=== PATIENT | female | born 1955 | race Two or more races ===

== ENCOUNTER → 2016-09-26 | Outpatient (CLI) | payer MEDICARE ==
[~2016-09-26] MED LIST: ALDACTONE25 MG PO; ASPIRIN LO-DOSE81 MG PO; ATIVAN 1 MG1 MG PO; BRILINTA90 MG PO; BUSPAR10 MG PO; CARDIZEM CD180 MG PO; CPAP; DESYREL100 MG PO; EFFEXOR XR150 MG PO; FLEXERIL10 MG PO; GABAPENTIN300 MG PO; HUMIBID LA (MU600 MG PO; K-TAB ER20 MEQ PO; LAMICTAL100 MG PO; LEXAPRO20 MG PO; LOPRESSOR25 MG PO; MYCOSTATIN(NYST15 GM TOP; NEURONTIN300 MG PO; NITROSTAT0.4 MG SL; OSCAL + D500 MG PO; OXYGEN M-15 INH; PERCOCET 5-3251 EACH PO; PRAVACHOL20 MG PO; PROAIR RESPICL90 MCG INH; PROTONIX40 MG PO; RANEXA ER500 MG PO; REQUIP1 MG PO; SYMBICORT 16010.2 GM INH; TYLENOL325 MG PO; VITAMIN E400 UNI2 PO; XOPENEX HF45 MCG/INH INH; XYZAL5 MG PO; ZANAFLEX4 MG PO
== END | disposition disaster alternative care site (69) ==
LOC: GOPD 09-21
PROC: 0FB23ZX Excision of Left Lobe Liver, Percutaneous Approach, Diagnostic (ICD-10-PCS; principal; 2016-09-26)
DX: R79.89 Other specified abnormal findings of blood chemistry (principal); K75.81 Nonalcoholic steatohepatitis (NASH); K75.9 Inflammatory liver disease, unspecified; R16.1 Splenomegaly, not elsewhere classified; Z90.49 Acquired absence of other specified parts of digestive tract
CPT/HCPCS: J2250; J3010; J7030

== ENCOUNTER 2016-12-03 00:40 | Emergency (ER) | payer MEDICARE ==
--- NOTE | ~2016-12-03 | ER ---
PATIENT'S NAME: MARITZA MUNOZ [facility] AGE: 61 Y [address] ROOM: [place] [address] LOCATION: [facility] ADMIT DATE: 12/03/2016 ER/Outpatient Report DISCHARGE DATE: FAMILY PHYSICIAN: Selam Florian MD ATTENDING PHYSICIAN: Fazal Jacobsen SEEN AT: 0055 hours. HISTORY OF PRESENT ILLNESS: This is a 61-year-old female. She was previously reasonably healthy. She is in with complaint of generalized weakness, headache, lightheaded, shortness of breath, and chest pain intermittently throughout the day today. The history is limited because the patient is unwilling or unable to answer questions. I discussed the patient with her daughter who is a nurse here at [facility] [facility] and she states that her mom has a conversion disorder and pseudoseizures. She has been under a great deal of stress and it is not unusual for her to present in this sort of a fugue state. Also the chest pain and shortness of breath are common symptoms. She does have known coronary artery disease. She had a stent in May 2015. CURRENT MEDICATIONS: See list. REVIEW OF SYSTEMS: The patient has been under a great deal of stress over the past several days. All other systems are negative. SOCIAL HISTORY: She is a nonsmoker. PHYSICAL EXAMINATION: GENERAL: Is that of a female, was lying passively, eyes open, would not make eye contact, would not answer any questions. VITAL SIGNS: Stable. She is afebrile. Sats were 95% on room air. HEAD, EARS, EYES, NOSE, AND THROAT: Revealed pupils equal, round, and reactive to light. She had a conjugate gaze. Ear nose and throat were clear. NECK: Supple. HEART: Normal. LUNGS: Normal. ABDOMEN: Soft. EXTREMITIES: Normal. NEUROLOGIC: Normal. DIAGNOSTIC DATA: PATIENT'S NAME: MARITZA MUNOZ [facility] AGE: 61 Y [address] ROOM: [place] [address] LOCATION: [facility] ADMIT DATE: 12/03/2016 ER/Outpatient Report DISCHARGE DATE: FAMILY PHYSICIAN: Selam Florian MD ATTENDING PHYSICIAN: Fazal Jacobsen EKG revealed normal sinus rhythm with no acute ST or T-wave changes. CBC, comprehensive metabolic profile, and cardiac enzymes were notable for a slightly elevated CK-MB but a normal troponin. Cardiac enzymes were repeated at 2 hours. CK-MB was still slightly elevated. Troponin remained normal. The patient gradually returned to a normal level of alertness and was asymptomatic at the time of discharge. ASSESSMENT: Conversion disorder. PLAN: Continue her current medications. Follow up with a regular doctor in 2 to 3 days. FAZAL JACOBSEN MD JLILIBETH/modl /[id number] d: 12/04/16 0033 t: 12/04/16 0444, OUTPATIENT REPORT
[2016-12-03 01:17] LABS: BASOPHIL % 0.4 %; EOSINOPHIL # 0.1 K/uL (0.0-0.5); EOSINOPHIL % 1.8 %; HEMATOCRIT 37.5 % (33.0-46.0); HEMOGLOBIN 12.4 g/dL (10.0-15.0); IMMATURE GRANULOCYTE % 0.6 %; LYMPHOCYTE # 1.9 K/uL (0.8-4.0); LYMPHOCYTE % 37.1 %; MCH 27.6 pg (27.0-34.0); MCHC 33.1 gm/dL (32.0-36.5); MCV 83.5 fl (83.0-98.0); MONOCYTE # 0.6 K/uL (0.0-1.0); MPV 10.7 fl (9.4-12.4); NEUTROPHIL # (ANC) 2.5 K/uL (1.8-7.8); NEUTROPHIL % 49.1 %; NRBC % 0 /100WBC (0-0.00); PLATELET COUNT 133 K/uL (150-450); RBC 4.49 M/uL (3.50-5.50); RDW-CV 13.9 % (11.9-14.6)
[2016-12-03 01:27] LABS: INR - (THERAPEUTIC) 1.03 (0.92-1.07); PROTIME 10.8 SECONDS (9.8-11.4); PTT 30 SECONDS (25-32)
[2016-12-03 01:36] LABS: ALBUMIN 3.7 gm/dL (3.5-5.0); ALK PHOS 138 IU/L (33-138); ALT 58 IU/L (12-78); AST 60 IU/L (10-40); BLOOD UREA NITROGEN 16 mg/dL (6-24); CALCIUM 8.5 mg/dL (8.5-10.5); CHLORIDE 103 mMol/L (96-110); CO2 27 mMol/L (22-32); CPK 330 IU/L (21-215); CREATININE 0.8 mg/dL (0.5-1.1); ESTIMATED GFR (MDRD EQUATION) > 60; MAGNESIUM 2.2 mg/dL (1.8-2.6); SODIUM 137 mMol/L (135-145); TOTAL BILIRUBIN 0.4 mg/dL (0.0-1.5)
[2016-12-03 02:05] LABS: BILIRUBIN URINE NEGATIVE (NEGATIVE); BLOOD URINE 50 /UL (NEGATIVE); COLOR URINE YELLOW (YELLOW); GLUCOSE URINE NEGATIVE (NEGATIVE); KETONE URINE NEGATIVE (NEGATIVE); LEUKOCYTES URINE NEGATIVE /UL (NEGATIVE); NITRITE URINE NEGATIVE (NEGATIVE); PROTEIN URINE NEGATIVE (NEGATIVE); TURBIDITY URINE CLEAR (CLEAR); UROBILINOGEN URINE NORMAL (NORMAL)
[2016-12-03 02:11] LABS: BACTERIA URINE NEGATIVE (NEGATIVE); WBC URINE RARE #/HPF (NEGATIVE)
[2016-12-03 03:24] LABS: CPK 309 IU/L (21-215)
== END 2016-12-03 04:36 | disposition disaster alternative care site (69) ==
LOC: GMED 00:40
PROVIDERS: Emergency Medicine
DX: F44.4 Conversion disorder with motor symptom or deficit (principal); Z91.040 Latex allergy status; Z79.82 Long term (current) use of aspirin; Z79.899 Other long term (current) drug therapy; Z88.2 Allergy status to sulfonamides; Z88.8 Allergy status to other drugs, medicaments and biological substances

== ENCOUNTER → 2016-12-03 | Outpatient (CLI) | payer MEDICARE | END | disposition disaster alternative care site (69) | LOC: GAMB 00:13 | DX: R53.1 Weakness (principal); I10 Essential (primary) hypertension; R51 Headache; Z79.84 Long term (current) use of oral hypoglycemic drugs; Z79.82 Long term (current) use of aspirin; Z79.899 Other long term (current) drug therapy ==

== ENCOUNTER → 2016-12-06 | Outpatient (CLI) | payer MEDICARE | END | disposition disaster alternative care site (69) | LOC: GBCOE 13:58 | DX: Z12.31 Encounter for screening mammogram for malignant neoplasm of breast (principal) | CPT/HCPCS: G0202 ==

== ENCOUNTER → 2016-12-24 | Outpatient (CLI) | payer MEDICARE | END | disposition disaster alternative care site (69) | LOC: GAMB 09:37 | DX: M54.9 Dorsalgia, unspecified (principal); W19.XXXA Unspecified fall, initial encounter | CPT/HCPCS: A0425; A0429 ==

== ENCOUNTER 2017-01-22 16:48 | Emergency (ER) | payer MEDICARE ==
--- NOTE | ~2017-01-22 | ER ---
PATIENT'S NAME: MARITZA MUNOZ [facility] AGE: 61 Y [address] ROOM: [place] [address] LOCATION: [facility] ADMIT DATE: 01/22/2017 ER/Outpatient Report DISCHARGE DATE: 01/22/2017 FAMILY PHYSICIAN: Physician, Unknown ATTENDING PHYSICIAN: Ziggy Whitney HISTORY OF PRESENT ILLNESS: This patient is a 61-year-old female, who alleges that was laying on the couch, may have fallen off the couch, hitting her head on the coffee table. There was some water and a glass on a coffee table that was spilled. She did develop through the day a head pain and neck pain and some numbness on the right side of her head, arms, and legs. Initially, the patient saw Dr. Whitney. See his dictation in regard to the chief complaint, history of the present illness, past medical history, physical exam, laboratory, x-ray study results. Dr. Whitney asked me to follow up with the patient's right shoulder x-ray, final diagnosis, and treatment plan. The patient is having no neurological changes on my exam here in the emergency department prior to dismissal. X-ray of her right shoulder showed no fracture, dislocation, or separation. We will review this with radiologist. LABORATORY DATA AND X-RAYS: CT scan of her head showed no intracranial bleed, midline shift, mass effect, or skull fracture. CT scan of the cervical spine showed no acute fracture or subluxation. CT scans read by Radiology, see dictated transcribed report. Her laboratory studies showed a white count of 4100, 46 segs, 41 lymphocytes, 11 monos, 2 eos, 1 baso, hemoglobin is 13, with hematocrit of 39.2, platelet count was 125,000. Lactate was normal at 0.9. CMS was normal except for a slightly elevated AST of 61, free T4 was 0.9, TSH was 3.25. IMPRESSION: Possible fall off a couch with possibility to that she hit the right side of her head on the coffee table. The patient has no neurological deficits. No abnormalities on CT scan of the head, cervical spine. Normal laboratory workup. Normal right plain shoulder x-ray. PLAN: The patient was dismissed from the emergency department, home, observation, activity as tolerated, continue present home medications and care. Tylenol 2 every 4-6 hours as needed for pain, ice or cold packs to sore areas intermittently as needed for the first 72 hours. Follow up with personal physician in 2 to 3 days sooner if needed. Discussion ensued with the patient concerning my findings and recommendations, she understands. PATIENT'S NAME: MARITZA MUNOZ [facility] AGE: 61 Y [address] ROOM: [place] [address] LOCATION: [facility] ADMIT DATE: 01/22/2017 ER/Outpatient Report DISCHARGE DATE: 01/22/2017 FAMILY PHYSICIAN: Physician, Unknown ATTENDING PHYSICIAN: Ziggy Whitney MD REJI LÓPEZ/paulinel /[id number] d: 01/22/17 2249 t: 01/23/17 1803, OUTPATIENT REPORT
--- NOTE | ~2017-01-22 | ER ---
PATIENT'S NAME: MARITZA MUNOZ [facility] AGE: 61 Y [address] ROOM: [place] [address] LOCATION: [facility] ADMIT DATE: 01/22/2017 ER/Outpatient Report DISCHARGE DATE: 01/22/2017 FAMILY PHYSICIAN: Physician, Unknown ATTENDING PHYSICIAN: Ziggy Whitney CHIEF COMPLAINT: Fall with head injury. HISTORY OF PRESENT ILLNESS: Maritza arrives by ambulance. She states that she fell out of a couch at home this morning around 8:00 a.m.; she does not know how. She knows she fell out of the couch, but she thinks she hit her head on the coffee table in front of the couch because when she woke up, there was some spilled water from a cup that was on the coffee table. She cannot recall these events, but is certain that is what happened. She did fine throughout the day, but felt like she had some numbness and tingling on her right side that was worse than it should be. She was going to wait for her to get home at 5, however at 4:30 p.m., she felt that it was necessary to call the ambulance as she could not wait another half hour. She was concerned about bleeding in her head. She has no other complaints other than some pain in her right shoulder. PAST MEDICAL HISTORY: Documented on the record and reviewed by me. SOCIAL HISTORY: Documented on the record and reviewed by me. MEDICATIONS: Documented on the record and reviewed by me. ALLERGIES: DOCUMENTED ON THE RECORD AND REVIEWED BY ME. REVIEW OF SYSTEMS: All systems were reviewed and negative except as noted in the HPI. PHYSICAL EXAMINATION: VITAL SIGNS: Blood pressure 140/63, pulse 82, respiratory rate 16, temperature 98.3, and SpO2 is 96% on room air. Pain is rated 4/10. GENERAL: An age-appropriate female, upright on the exam chair, in no apparent pain or distress. NEUROLOGIC: The patient is awake. She is alert. She is oriented to person, place, and time. She has no cranial nerve deficits. No pronator drift. No PATIENT'S NAME: MARITZA MUNOZ [facility] AGE: 61 Y [address] ROOM: [place] [address] LOCATION: [facility] ADMIT DATE: 01/22/2017 ER/Outpatient Report DISCHARGE DATE: 01/22/2017 FAMILY PHYSICIAN: Physician, Unknown ATTENDING PHYSICIAN: Ziggy Whitney obvious speech impediments. The patient states that she has weakness in her right side. Her push and pull were asymmetric, however, when the examiner exaggerated the motion and provided an opposing force, the patient had symmetric strength and ability to withstand motion. Her promotional marketing agent also improved markedly when she was forced to hang on to some asymmetric promotional marketing agent. Sensory testing to dull and sharp is nonrepeatable in any extremity, over all of the dermatomes of the patient. There is no clear pattern and she is correct approximately 70% of the time on both sides. The lower extremities are grossly unremarkable to strength. HEENT: Normocephalic and atraumatic. Eyes are PERRL. Oropharynx is clear. NECK: Supple. Trachea is midline. CHEST: Heart is regular rate and rhythm with no murmurs. LUNGS: Clear to auscultation bilateral with no rhonchi, wheezes, or rales. ABDOMEN: Soft, nontender, and nondistended. No rebound or guarding. BACK: Normal to inspection and palpation. EXTREMITIES: Warm and well perfused without tenderness, edema, or deformities, other than some pain in the right shoulder with resistance to motion. SKIN: Clean, dry, and intact. The head is with perhaps some swelling on the right posterior lateral aspects, poorly defined, but slightly tender. LABORATORY DATA AND X-RAYS: Head CT with no appreciable abnormalities acutely per Radiology review. Accu-Chek 103. CBC with no appreciable abnormalities. Lactate is undetectable. CMS with no electrolyte or renal abnormalities. AST slightly elevated at 61. Free T4 is 0.9. TSH is 3.25. Right shoulder x-ray is pending. IMPRESSION: 1. Possible fall with possible paresthesias. 2. Some shoulder discomfort after possible fall with possible paresthesias. EMERGENCY DEPARTMENT COURSE: The patient was seen and evaluated. No signs of stroke or intracranial bleeding. No significant extremity injuries appreciated. The patient does overall have a very strange affect. Review of her chart is notable for a history of some pseudoseizures. The patient has no evidence of active seizure at this time. Her neuro exam although unusual is nonfocal. Care was transitioned to Dr. Soliz at 1800 hours to complete follow up of imaging and labs, re-evaluate the patient and disposition accordingly. PATIENT'S NAME: MARITZA MUNOZ [facility] AGE: 61 Y [address] ROOM: [place] [address] LOCATION: [facility] ADMIT DATE: 01/22/2017 ER/Outpatient Report DISCHARGE DATE: 01/22/2017 FAMILY PHYSICIAN: Physician, Unknown ATTENDING PHYSICIAN: Ziggy Whitney MD JH/korey /[id number] d: 01/23/17 1052 t: 01/29/17 1019, OUTPATIENT REPORT
[2017-01-22 17:27] LABS: BASOPHIL % 0.5 %; EOSINOPHIL # 0.1 K/uL (0.0-0.5); EOSINOPHIL % 1.5 %; HEMATOCRIT 39.2 % (33.0-46.0); IMMATURE GRANULOCYTE % 0.5 %; LYMPHOCYTE # 1.7 K/uL (0.8-4.0); LYMPHOCYTE % 41.1 %; MCHC 33.2 gm/dL (32.0-36.5); MCV 84.3 fl (83.0-98.0); MONOCYTE # 0.4 K/uL (0.0-1.0); MONOCYTE % 10.8 %; MPV 10.5 fl (9.4-12.4); NEUTROPHIL # (ANC) 1.9 K/uL (1.8-7.8); NEUTROPHIL % 45.6 %; NRBC % 0 /100WBC (0-0.00); PLATELET COUNT 125 K/uL (150-450); RBC 4.65 M/uL (3.50-5.50); RDW-CV 14.1 % (11.9-14.6); WBC 4.1 K/uL (4.0-11.0)
[2017-01-22 17:53] LABS: ALBUMIN 3.8 gm/dL (3.5-5.0); ALK PHOS 119 IU/L (33-138); ALT 60 IU/L (12-78); ANION GAP 11.8 (10.0-19.0); AST 61 IU/L (10-40); BLOOD UREA NITROGEN 10 mg/dL (6-24); CALCIUM 8.8 mg/dL (8.5-10.5); CHLORIDE 103 mMol/L (96-110); CO2 29 mMol/L (22-32); CREATININE 0.7 mg/dL (0.5-1.1); POTASSIUM 3.8 mMol/L (3.7-5.1); SODIUM 140 mMol/L (135-145); TOTAL PROTEIN 8.1 g/dL (6.0-8.4)
[2017-01-22 17:54] LABS: TOTAL BILIRUBIN 0.5 mg/dL (0.0-1.5)
== END 2017-01-22 18:18 | disposition disaster alternative care site (69) ==
LOC: GACC 16:48
PROVIDERS: Emergency Medicine
DX: M25.511 Pain in right shoulder (principal); I10 Essential (primary) hypertension; F32.9 Major depressive disorder, single episode, unspecified; F41.9 Anxiety disorder, unspecified; Z88.2 Allergy status to sulfonamides; Z88.8 Allergy status to other drugs, medicaments and biological substances; Z79.899 Other long term (current) drug therapy; Z79.82 Long term (current) use of aspirin

== ENCOUNTER → 2017-01-22 | Outpatient (CLI) | payer MEDICARE | END | disposition disaster alternative care site (69) | LOC: GAMB 16:20 | DX: S09.90XA Unspecified injury of head, initial encounter (principal); R51 Headache; W01.0XXA Fall on same level from slipping, tripping and stumbling without subsequent striking against object, initial encounter | CPT/HCPCS: A0425; A0429 ==

== ENCOUNTER 2017-02-02 17:23 | Emergency (ER) | payer MEDICARE ==
--- NOTE | ~2017-02-02 | ER ---
PATIENT'S NAME: MARITZA MUNOZ [facility] AGE: 61 Y [address] ROOM: [place] [address] LOCATION: [facility] ADMIT DATE: 02/02/2017 ER/Outpatient Report DISCHARGE DATE: 02/02/2017 FAMILY PHYSICIAN: Selam Florian MD ATTENDING PHYSICIAN: Ziggy Whitney TIME OF ARRIVAL: 1735 hours. TIME OF EXAM: 1735 hours. CHIEF COMPLAINT: Ground level fall. HISTORY OF PRESENT ILLNESS: The patient states yesterday 02/01/2017 about 8 o'clock at night, she tripped over her dog, ended up falling on her butt, and then falling back. She states that she thinks she may have hit her head and had loss of consciousness, but she is not for sure. She states today that she continues to have pain and discomfort. She states she twisted her right ankle when she tripped over the dog and she has pain of the head, neck, and lower back. Reports she has a history of having surgery to her lower back in 2001. Denies any numbness or tingling of her extremities. She has not had any change in her bowel or bladder pattern. She has not been nauseated. No vomiting. She has not had vision changes. Does have a headache. ALLERGIES: SULFA. CURRENT MEDICATIONS: Current medications are on the chart and reviewed by me. PAST MEDICAL HISTORY: COPD, depression, and hypertension. PAST SURGERIES: Back surgery. SOCIAL HISTORY: She denies use of tobacco, drugs, and alcohol. REVIEW OF SYSTEMS: Negative other than those mentioned in the HPI. PATIENT'S NAME: MARITZA MUNOZ [facility] AGE: 61 Y [address] ROOM: [place] [address] LOCATION: [facility] ADMIT DATE: 02/02/2017 ER/Outpatient Report DISCHARGE DATE: 02/02/2017 FAMILY PHYSICIAN: Selam Florian MD ATTENDING PHYSICIAN: Ziggy Whitney PHYSICAL EXAMINATION: VITAL SIGNS: She weighed 102.5 kg. Blood pressure is 154/78, pulse of 84, respirations 20, temp of 97.8, and O2 sats 94% on room air. [place] Coma Scale is 15. GENERAL: She is awake, alert, and oriented x4. SKIN: [place], warm, and dry. RESPIRATIONS: Even and nonlabored. HEENT: Pupils are equal and reactive to light. Extraocular movement is intact. Negative nystagmus. LUNGS: Lung sounds are clear throughout. HEART: Regular rate and rhythm. ABDOMEN: Soft, nondistended. Bowel sounds are present. EXTREMITIES: She walked in with a steady even gait. No peripheral edema noted. Moves all extremities strongly and equally. LABORATORY DATA: X-ray of the right ankle was completed. No bony abnormality is noted. CT of the head, C-spine, T-spine, and L-spine were completed. Radiologist reports no acute processes. The patient was given [place] 5/325 x1 tab p.o. IMPRESSION: 1. Fall. 2. Generalized body aches. PLAN: Home, rest, and ice to the sore areas. Tylenol as needed for discomfort. Continue her current medications. If symptoms persist or worsen, she needs to follow up with her primary provider. She verbalized understanding. RAFI LOCO APRN FOR MD LEMUEL MUNIZ/korey /[id number] d: 02/02/17 2357 t: 02/12/17 0631, OUTPATIENT REPORT
== END 2017-02-02 19:15 | disposition disaster alternative care site (69) ==
LOC: GACC 17:23
DX: R51 Headache (principal); M54.5 Low back pain; M54.2 Cervicalgia; I10 Essential (primary) hypertension; J44.9 Chronic obstructive pulmonary disease, unspecified; F32.9 Major depressive disorder, single episode, unspecified; Z88.2 Allergy status to sulfonamides; Z88.8 Allergy status to other drugs, medicaments and biological substances; Z98.890 Other specified postprocedural states; W01.0XXA Fall on same level from slipping, tripping and stumbling without subsequent striking against object, initial encounter